=== PATIENT | female | born 1990 | race Hispanic/Latino ===

== ENCOUNTER 2017-11-30 09:11 | Emergency (ER) | payer OTHER ==
[2017-11-30 09:15] VITALS: RESP 17; O2SAT 100; BMI 26.4
--- NOTE | 2017-11-30 09:28 | ED PDOC ---
HPI: Nose Bleed Time Seen by Provider: 11/30/17 09:16 Chief Complaint (Provider): Nose Injury History Per: Patient History/Exam Limitations: no limitations Onset/Duration Of Symptoms: Other ([employer]) Associated Symptoms: denies: Syncope Additional Complaint(s): 27 years old female presents to the ED for evaluation of injured nose after her dog's head hit her in the nose this morning and started bleeding. Patient denies any loss of consciousness, shortness of breath or other injuries. PMD: non provided Past Medical History Reviewed: Historical Data, Nursing Documentation, Vital Signs Vital Signs: Last Vital Signs Temp 98.7 F 11/30/17 09:13 Pulse 62 11/30/17 09:13 Resp 17 11/30/17 09:13 BP 157/88 H 11/30/17 09:13 Pulse Ox 100 11/30/17 09:13 - Medical History PMH: No Chronic Diseases - Surgical History Surgical History: No Surg Hx - Family History Family History: States: Unknown Family Hx - Home Medications Home Medications: Ambulatory Orders Medication Instructions Recorded traMADol [Ultram] 50 mg PO Q8 #10 tab 11/30/17 - Allergies Allergies/Adverse Reactions: Allergies Allergy/AdvReac Type Severity Reaction Status Date / Time No Known Allergies Allergy Verified 11/30/17 09:20 Review of Systems ROS Statement: Except As Marked, All Systems Reviewed And Found Negative ENT: Positive for: Nose Pain (with bleeding) Respiratory: Negative for: Shortness of Breath Physical Exam - Reviewed Nursing Documentation Reviewed: Yes Vital Signs Reviewed: Yes - Physical Exam Appears: Positive for: Non-toxic, No Acute Distress Head Exam: Positive for: ATRAUMATIC, NORMOCEPHALIC ENT: Positive for: Other (Swelling of nose bridge. No subtle hematoma or active bleeding. No orbital tenderness.) Neurologic/Psych: Positive for: Alert, Oriented (x3) - ECG O2 Sat by Pulse Oximetry: 100 (RA) Pulse Ox Interpretation: Normal Medical Decision Making Medical Decision Making: Time: 921 Initial Plan: --Ultram 50 mg PO --Nasal Bones X-Ray 1005 Nasal Bones X-Ray FINDINGS: There is evidence of a small nondisplaced fracture of the midportion of the nasal bone. Maxillary spine is intact. No depression of the nasal bone is seen. Orbital floors are unremarkable. There is some mild subtle opacification overlying the left maxillary sinus region which may represent overlying soft tissue swelling. IMPRESSION: Small fracture of the midportion of the nasal bone is suspected. ----- Scribe Attestation: Documented by Nida Castle, acting as a scribe for Jesús Santoyo MD. Provider Scribe Attestation: All medical record entries made by the Scribe were at my direction and personally dictated by me. I have reviewed the chart and agree that the record accurately reflects my personal performance of the history, physical exam, medical decision making, and the department course for this patient. I have also personally directed, reviewed, and agree with the discharge instructions and disposition. Disposition - Clinical Impression Clinical Impression: Nose fracture - Patient ED Disposition Is Patient to be Admitted: No Counseled Patient/Family Regarding: Studies Performed, Diagnosis, Need For Followup, Rx Given - Disposition Referrals: Mateo Porter MD [Staff Provider] - Lorna Chan MD [Medical Doctor] - Disposition: Routine/Home Disposition Time: 10:17 Condition: FAIR Prescriptions: traMADol [Ultram] 50 mg PO Q8 #10 tab Instructions: Nose Fracture
--- NOTE | 2017-11-30 10:06 | RAD ---
Date of service: 11/30/2017 PROCEDURE: Radiographs of Nasal Bones HISTORY: trauma COMPARISON: None available. TECHNIQUE: Frontal and lateral radiographs of the nasal bones. FINDINGS: There is evidence of a small nondisplaced fracture of the midportion of the nasal bone. Maxillary spine is intact. No depression of the nasal bone is seen. Orbital floors are unremarkable. There is some mild subtle opacification overlying the left maxillary sinus region which may represent overlying soft tissue swelling. IMPRESSION: Small fracture of the midportion of the nasal bone is suspected.
[2017-11-30 10:58] VITALS: BP 132/87; PULSE 77; TEMP 98
== END 2017-11-30 10:56 | disposition home or self-care (01) ==
LOC: H.ER 09:11
DX: S02.2XXA Fracture of nasal bones, initial encounter for closed fracture (principal); W22.8XXA Striking against or struck by other objects, initial encounter; Y92.89 Other specified places as the place of occurrence of the external cause